=== PATIENT | male | born 1955 | race Asian ===

== ENCOUNTER 2021-12-12 18:46 | Inpatient (IN) | payer MEDICARE ==
[~2021-12-12] VITALS: Ht 172.7 cm; Wt 68.3 kg
[2021-12-13 00:15] LABS: Basophils # (auto) 0 10 ^3/uL (0-0.2); Basophils % (auto) 0.2 % (0.0-2.0); Eosinophils # (auto) 0 10 ^3/uL (0-0.8); Eosinophils % (auto) 0.3 % (0.0-7.0); Hemoglobin 12.9 g/dL (13.5-17.5); Lymphocytes # (auto) 0.9 10 ^3/uL (0.4-5.4); Lymphocytes % (auto) 8.4 % (10.0-50.0); Mean Corpuscular Hemoglobin 30.8 pg (28.0-32.0); Mean Corpuscular Hgb Conc. 33.2 g/dL (32.0-36.0); Mean Corpuscular Volume 92.8 fL (80.0-100.0); Monocytes # (auto) 0.7 10 ^3/uL (0-1.3); Neutrophils # (auto) 8.7 10 ^3/uL (1.6-8.6); Neutrophils % (auto) 84.1 % (37.0-80.0); Red Cell Distribution Width 14.3 % (11.8-14.3); White Blood Cell 10.3 10^3/uL (4.4-10.8)
[2021-12-13 00:34] LABS: Albumin 3.9 g/dL (3.4-5.0); Calcium 8.9 mg/dL (8.5-10.1)
[2021-12-13 00:37] LABS: BUN/Creatinine Ratio 20.6
[2021-12-13 00:39] LABS: Bilirubin, Total 0.6 mg/dL (0.2-1.0); Total Protein 7.6 g/dL (6.4-8.2)
[2021-12-13 01:47] LABS: Urine WBC None Seen /hpf (0 - 3)
[2021-12-13 01:50] LABS: Urine Bacteria NONE SEEN /hpf (None Seen); Urine Blood Negative /uL (Negative); Urine Specific Gravity 1.016 (1.001-1.035)
[2021-12-13] MEDS ORDERED: PIPERACILLIN-TAZOB 3.375GM 100 ML IV ONE (02:00)
[2021-12-13] MEDS ORDERED: SODIUM CHLORIDE 0.9% 1,000 ML IV SCH (02:45)
[2021-12-13] MEDS ORDERED: NITROGLYCERIN 0.4 MG SL TAB SL PRN (02:45)
[2021-12-13] MEDS ORDERED: MORPHINE SULFATE INJ 2 MG/ml SYRG IV PRN ×2 (02:45)
[2021-12-13] MEDS ORDERED: ONDANSETRON HCL 4 MG/2 ML VIAL IV PRN ×2 (02:45→08:30)
[2021-12-13 03:18] LABS: INR 0.89 (0.9-1.15); Partial Thromboplastin Time 29.1 sec (24.6-33.4)
[2021-12-13] MEDS ORDERED: metroNIDAZOLE 500MG/100ML 100 ML IV SCH (06:00)
[2021-12-13] MEDS ORDERED: fentaNYL CITRATE 100 MCG/2 ML VL ONE (08:07)
[2021-12-13] MEDS ORDERED: MEPERIDINE HCL (50 MG/ML) 1 ML VIAL ONE (08:07)
[2021-12-13] MEDS ORDERED: MIDAZOLAM HCL 2MG/2ML 2ml VIAL (1mg/ml) ONE (08:07)
[2021-12-13] MEDS ORDERED: DexAMETHasone SOD PHOS 10MG/1ML VIAL INJ ONE (08:09)
[2021-12-13] MEDS ORDERED: ceFAZolin 1GM/50ML 100 ML IV ONE (08:15)
[2021-12-13] MEDS ORDERED: ETOMIDATE (2MG/ML) 20ML VIAL IV ONE (08:25)
[2021-12-13] MEDS ORDERED: LABETALOL HCL 5 MG/ML 4ML SYRINGE IV PRN (08:30)
[2021-12-13] MEDS ORDERED: MIDAZOLAM HCL 2MG/2ML 2ml VIAL (1mg/ml) IV PRN (08:30)
[2021-12-13] MEDS ORDERED: ACCU-CHEK COMFORT CURVE STRIP VI ONE (08:30)
[2021-12-13] MEDS ORDERED: HYDROmorphone HCL 2 MG/ML VL/or syr IV PRN ×2 (08:30→09:15)
[2021-12-13] MEDS ORDERED: ePHEDrine SULFATE 50 MG/ML AMP IV PRN (08:30)
[2021-12-13] MEDS ORDERED: MORPHINE SULFATE 4 MG/ML SYR/VIAL IV PRN (08:30)
[2021-12-13] MEDS ORDERED: cefTRIAXone 1GM/50ML D5W 50 ML IV SCH (09:00)
[2021-12-13] MEDS ORDERED: SUGAMMADEX 200mg/2ml Vial (100MG/ML) IV ONE (09:13)
[2021-12-13] MEDS ORDERED: ACETAMINOPHEN/CODEINE#3 (300/30mg) TAB PO PRN (09:15)
[2021-12-13] MEDS ORDERED: PANTOPRAZOLE 40 MG/10 ML VIAL INJ IV SCH (10:00)
[2021-12-13 11:00] VITALS: BP 108/68
[2021-12-13] MEDS: D5W/SOD CHL 0.45%/KCL 20MEQ 1,000 ML IV SCH ×2 (11:32→17:35)
[2021-12-13 12:41] VITALS: BP 108/68
[2021-12-13] MEDS ORDERED: LISI-275 PO (13:10)
[2021-12-13] MEDS ORDERED: GLIM2TAB PO (13:10)
[2021-12-13] MEDS ORDERED: ATOR40TA52 PO (13:10)
[2021-12-13] MEDS ORDERED: PIO30T PO (13:10)
[2021-12-13] MEDS ORDERED: METO25TA93 PO (13:10)
[2021-12-13] MEDS ORDERED: MAGN400T40 PO (13:10)
[2021-12-13] MEDS ORDERED: TAMS0.4C36 PO (13:10)
[2021-12-13] MEDS ORDERED: EMPA1TAB13 PO (13:10)
[2021-12-13] MEDS ORDERED: ASPI-543 PO (13:10)
[2021-12-13] MEDS ORDERED: FENO145T27 PO (13:10)
[2021-12-13] MEDS ORDERED: ROCURONIUM 10MG/ML 10ML VIAL IV ONE (14:41)
[2021-12-13] MEDS ORDERED: PHENYLEPHRINE HCL 10 MG/ML VL IV ONE (14:41)
[2021-12-13] MEDS ORDERED: ONDANSETRON HCL 4 MG/2 ML VIAL IV ONE (14:41)
[2021-12-13] MEDS: metroNIDAZOLE 500MG/100ML 100 ML IV SCH ×2 (14:45→21:48)
[2021-12-13 17:14] VITALS: BP 105/64
[2021-12-13] MEDS: EMPAGLIFLOZIN PO SCH (18:00)
[2021-12-13] MEDS ORDERED: TAMSULOSIN HYDROCHLORIDE 0.4 MG CAP PO SCH (18:00)
[2021-12-13] MEDS: METFORMIN PO SCH (18:00)
[2021-12-13] MEDS: [UNRECOGNIZED DRUG - OTHER] PO SCH (18:00)
[2021-12-13 22:00] VITALS: BP 101/64
[2021-12-13] MEDS ORDERED: ATORVASTATIN 20 MG TAB PO SCH (22:00)
[2021-12-14] MEDS: D5W/SOD CHL 0.45%/KCL 20MEQ 1,000 ML IV SCH ×2 (00:37→10:30)
[2021-12-14 05:03] VITALS: BP 90/54
[2021-12-14] MEDS: metroNIDAZOLE 500MG/100ML 100 ML IV SCH (05:34)
[2021-12-14 06:37] LABS: Basophils # (auto) 0 10 ^3/uL (0-0.2); Basophils % (auto) 0.1 % (0.0-2.0); Eosinophils # (auto) 0 10 ^3/uL (0-0.8); Eosinophils % (auto) 0.1 % (0.0-7.0); Hematocrit 34.5 % (41.0-53.0); Hemoglobin 11.7 g/dL (13.5-17.5); Lymphocytes # (auto) 0.9 10 ^3/uL (0.4-5.4); Lymphocytes % (auto) 9.7 % (10.0-50.0); Mean Corpuscular Volume 91.2 fL (80.0-100.0); Monocytes # (auto) 0.6 10 ^3/uL (0-1.3); Monocytes % (auto) 5.8 % (0.0-12.0); Neutrophils # (auto) 8.1 10 ^3/uL (1.6-8.6); Neutrophils % (auto) 84.3 % (37.0-80.0); Red Blood Cells 3.78 10^6/uL (4.5-5.90); Red Cell Distribution Width 14.3 % (11.8-14.3); White Blood Cell 9.6 10^3/uL (4.4-10.8)
[2021-12-14 06:50] LABS: Calcium 8.6 mg/dL (8.5-10.1); Potassium 4.2 mmol/L (3.5-5.1)
[2021-12-14 06:55] LABS: BUN/Creatinine Ratio 14.9; Bilirubin, Total 0.6 mg/dL (0.2-1.0); Total Protein 6.5 g/dL (6.4-8.2)
[2021-12-14] MEDS: METFORMIN PO SCH (08:00)
[2021-12-14] MEDS ORDERED: GLIMEPIRIDE 2 MG TAB PO SCH (08:00)
[2021-12-14] MEDS: EMPAGLIFLOZIN PO SCH (08:00)
[2021-12-14] MEDS: [UNRECOGNIZED DRUG - OTHER] PO SCH (08:00)
[2021-12-14 09:00] VITALS: BP 112/71
[2021-12-14] MEDS ORDERED: cefTRIAXone 1GM/50ML D5W 50 ML IV SCH (09:00)
[2021-12-14] MEDS ORDERED: HYDR-4902 PO (09:05)
[2021-12-14] MEDS ORDERED: METR500T PO (09:05)
[2021-12-14] MEDS ORDERED: LEVO500T31 PO (09:05)
[2021-12-14] MEDS ORDERED: LISINOPRIL 5 MG TAB PO SCH (10:00)
[2021-12-14] MEDS ORDERED: ASPirin-EC 81 mg tab PO SCH (10:00)
[2021-12-14] MEDS ORDERED: PIOGLITAZONE HYDROCHLORIDE 30 MG TAB PO SCH (10:00)
[2021-12-14] MEDS ORDERED: MAGNESIUM OXIDE 400 MG TAB PO SCH (10:00)
[2021-12-14] MEDS ORDERED: ASPirin 81 mg TAB PO SCH (10:00)
[2021-12-14] MEDS ORDERED: METOPROLOL SUCCINATE XL 50 MG TAB PO SCH (10:00)
[2021-12-14] MEDS ORDERED: ATORVASTATIN 20 MG TAB PO SCH (10:00)
[2021-12-14 12:30] VITALS: BP 102/65
== END 2021-12-14 14:00 | disposition home or self-care (01) | DRG 343 ==
LOC: ER 18:46 → OVERFLOW 12-13 02:33 → CENTRAL 12-13 07:36
PROVIDERS: ADMIT Nurse Practitioner; ATTEND Family Medicine
PROC: 0DTJ4ZZ Resection of Appendix, Percutaneous Endoscopic Approach (ICD-10-PCS; principal; 2021-12-13 08:28)
DX: K35.80 Unspecified acute appendicitis (principal); E11.9 Type 2 diabetes mellitus without complications; I10 Essential (primary) hypertension; N40.0 Benign prostatic hyperplasia without lower urinary tract symptoms; E78.00 Pure hypercholesterolemia, unspecified; Z20.822 Contact with and (suspected) exposure to COVID-19; Z95.5 Presence of coronary angioplasty implant and graft
CPT/HCPCS: 36415; 74176; 76705; 80053; 81001; 82962; 83605; 83690; 84484; 85025; 85610; 85730; 96365; 96366; 96367; G0378; J0690; J0696; J1100; J2250; J2405; J2543; J3490

== ENCOUNTER 2024-02-17 16:22 | Emergency (ER) | payer BC, MEDICARE ==
[~2024-02-17] VITALS: Ht 172.7 cm; Wt 66.2 kg
[~2024-02-17 16:22] MED LIST: ASPI-543 PO; ATOR40TA52 PO; EMPA1TAB13 PO; FENO145T27 PO; GLIM2TAB PO; HYDR-4902 PO; LEVO500T31 PO; LISI-275 PO; MAGN400T40 PO; METO25TA93 PO; METR500T PO; PIO30T PO; TAMS0.4C39 PO
[2024-02-17] MEDS ORDERED: CEPH500C PO (17:23)
[2024-02-17] MEDS ORDERED: BACDST PO (17:23)
[2024-02-17] MEDS ORDERED: CHLO4LIQ EX (17:24)
[2024-02-17] MEDS: cefTRIAXone SOD 1,000 MG VL IM ONE (17:44)
[2024-02-17 17:49] VITALS: BP 122/74; PULSE 72; RESP 14; TEMP 97.8; O2SAT 98
== END 2024-02-17 18:27 | disposition home or self-care (01) ==
LOC: ER 16:22
DX: S80.862A Insect bite (nonvenomous), left lower leg, initial encounter (principal); E11.9 Type 2 diabetes mellitus without complications; Z79.82 Long term (current) use of aspirin; Z79.84 Long term (current) use of oral hypoglycemic drugs; Z79.899 Other long term (current) drug therapy; W57.XXXA Bitten or stung by nonvenomous insect and other nonvenomous arthropods, initial encounter; Y93.89 Activity, other specified; Y92.89 Other specified places as the place of occurrence of the external cause; Y99.8 Other external cause status
CPT/HCPCS: 82962; 96372; 99283; J0696

== ENCOUNTER 2024-02-19 09:05 | Emergency (ER) | payer BC ==
[~2024-02-19] VITALS: Ht 172.7 cm; Wt 67.6 kg
[~2024-02-19 09:05] MED LIST changes: +BACDST PO; +CEPH500C PO; +CHLO4LIQ EX
[2024-02-19 09:29] VITALS: BP 110/68; PULSE 80; RESP 16; TEMP 98.2; O2SAT 99
== END 2024-02-19 09:43 | disposition home or self-care (01) ==
LOC: ER 09:05
DX: Z48.00 Encounter for change or removal of nonsurgical wound dressing (principal); E11.9 Type 2 diabetes mellitus without complications; Z79.82 Long term (current) use of aspirin; Z79.84 Long term (current) use of oral hypoglycemic drugs; Z79.899 Other long term (current) drug therapy